=== PATIENT | female | born 1960 | race Caucasian/White ===

== ENCOUNTER → 2016-10-03 | Outpatient (CLI) | payer OTHER ==
--- NOTE | 2016-10-03 15:04 | DX ---
Thoracolumbar spine series 2 views standing 1138 hours. History: Followup fusion. Findings: Comparison to April 06, 2016. Pedicle screws and paraspinal rods are in stable position from T8 through the upper sacrum. Disk repl acement material is also in stable position from L1-L2 through L5-S1. Vertebral body heights are well -maintained. There are no significant subluxations. Disk space narrowing is evident midthoracic spine above the fusion. There is stable moderate levoscoliosis mid lumbar spine. Impression: 1. Stable fusion from T8 through the upper sacrum with moderate levoscoliosis mid lumbar spine. 2. Stable degenerative disk disease mid thoracic spine.
== END ==
LOC: FIMAGING 11:25
PROVIDERS: ATTEND Physician Assistant Surgical
DX: M41.25 Other idiopathic scoliosis, thoracolumbar region (principal); M51.34 Other intervertebral disc degeneration, thoracic region; Z98.1 Arthrodesis status